=== PATIENT | male | born 1975 | race Caucasian/White ===

== ENCOUNTER 2020-04-25 04:35 | Emergency (ER) | payer OTHER ==
[~2020-04-25] VITALS: Ht 175.3 cm; Wt 72.6 kg
[2020-04-25 04:40] VITALS: BP 130/78
[2020-04-25 05:40] VITALS: BP 130/78
== END 2020-04-25 05:40 | disposition home or self-care (01) ==
LOC: MED 04:35
DX: M79.641 Pain in right hand (principal); M79.642 Pain in left hand; F12.90 Cannabis use, unspecified, uncomplicated; Z59.0 Homelessness; W01.0XXA Fall on same level from slipping, tripping and stumbling without subsequent striking against object, initial encounter; Y93.01 Activity, walking, marching and hiking; Y92.89 Other specified places as the place of occurrence of the external cause; Y99.8 Other external cause status
CPT/HCPCS: 99283

== ENCOUNTER 2022-09-23 14:57 | Inpatient (IN) | payer SELFPAY ==
[~2022-09-23] VITALS: Ht 177.8 cm; Wt 77.1 kg
[2022-09-23 15:08] VITALS: BP 127/73; PULSE 90; RESP 16; TEMP 98.2; O2SAT 97
--- NOTE | 2022-09-23 15:15 | NUR ---
GWEN COLIN - PATIENT BIBA TO ER BED 06
[2022-09-23] MEDS ORDERED: IBUPROFEN 600 MG TAB PO ONE (15:30)
[2022-09-23] MEDS ORDERED: ACETAMINOPHEN 325 MG TAB PO ONE (15:30)
--- NOTE | 2022-09-23 15:34 | NUR ---
PT WAS SEEN BY DR. MERCADO AT BS. PT PLACED ON THE BS MONITOR.
--- NOTE | 2022-09-23 16:27 | NUR ---
37 Y/O M BIBA FOR ALTERED MENTAL STATE. PT COMPLAING OF BILATERAL FEET PAIN DUE TO BLISTERS ON FEET. PT STATES HE FELL ON HIS HEAD BUT IS UNSURE WHAT OCCURED. [facility] STATES PT WAS INCOMPREHENSIBLE ON SCENE; PT STATES HE HAS HEAD PAIN; PT STATES HE HAS NOT EATEN IN 3 DAYS. PT DENIES N/V/D; SKIN IS PINK/WARM/DRY; AAOX4 PTS GAIT IS UNSTEADY; LUNGS CLEAR BL; HR EVEN AND REGULAR; PT DENIES ANY FEVER, CP, SOB, OR COUGH AT THIS TIME; PATIENT STATES PAIN OF 10/10 AT THIS TIME; VSS; PATIENT POSITIONED FOR COMFORT; HOB ELEVATED; CALL LIGHT WITH IN REACH; PT HAS BEEN PLACED IN FRONT OF NURSES STATION TO MONITOR FOR DIZZINESS. BEDRAILS UP X2; BED DOWN. ER MD MADE AWARE OF PT STATUS. PMHX NO MEDICAL HX NKA
[2022-09-23 16:28] LABS: BASOPHILS % (AUTO) 0.1 % (0.0-2.0); EOSINOPHILS # (AUTO) 0.1 K/uL (0-0.4); EOSINOPHILS % (AUTO) 1.3 % (0.0-4.0); HEMATOCRIT 32.7 % (36-52); HEMOGLOBIN 11.3 g/dL (12.0-18.0); LYMPHOCYTES # (AUTO) 1.1 K/uL (2.0-11.5); LYMPHOCYTES % (AUTO) 10.6 % (20.5-51.1); MEAN CORPUSCULAR HEMOGLOBIN 32 pg (27-31); MEAN CORPUSCULAR HGB CONC 34 g/dL (33-37); MEAN CORPUSCULAR VOLUME 93.9 fL (80-94); MONOCYTES # (AUTO) 0.8 K/uL (0.8-1.0); MONOCYTES % (AUTO) 7.1 % (1.7-9.3); NEUTROPHILS # (AUTO) 8.8 K/uL (1.8-7.7); NEUTROPHILS % (AUTO) 80.9 % (42.2-75.2); PLATELET COUNT (AUTO) 365 K/uL (140-450); RED BLOOD CELL COUNT(AUTO) 3.48 MIL/uL (4.20-6.10); RED CELL DISTRIBUTION WIDTH 14.1 % (11.6-13.7); WHITE BLOOD COUNT (AUTO) 10.8 K/uL (4.8-10.8)
[2022-09-23 16:35] VITALS: O2SAT 97
[2022-09-23] MEDS ORDERED: IBUPROFEN 600 MG TAB ONE (16:44)
[2022-09-23] MEDS ORDERED: ACETAMINOPHEN 325 MG TAB ONE (16:45)
--- NOTE | 2022-09-23 16:51 | NUR ---
PT HAS BEEN MEDICATED PER PROVIDERS ORDERS.
[2022-09-23 16:52] LABS: ACETAMINOPHEN < 0.5 ug/ml (10-30); ANION GAP 13.3 (8-16); ASPARTATE AMINOTRANSFERASE 205 U/L (15-37); CARBON DIOXIDE 26.7 mmol/L (21-32); CHLORIDE 101 mmol/L (98-107); CREATININE 0.7 mg/dL (0.6-1.3); GFR ARICAN-AMERICAN 162 mL/min (>90); GLUCOSE 107 mg/dL (74-106); SALICYLATE < 2.8 mg/dL (2.8-20.0); SODIUM SERUM 138 mmol/L (136-145); TOTAL BILIRUBIN 0.7 mg/dL (0.0-1.0); UREA NITROGEN, BLOOD 19 mg/dL (7-18)
--- NOTE | 2022-09-23 18:56 | NUR ---
The patient's care was reviewed and supervised by ONEYDA HIDALGO RN.
[2022-09-23] MEDS ORDERED: POTASSIUM CHLORIDE 10 MEQ TABER PO ONE (19:10)
[2022-09-23 19:23] VITALS: O2SAT 97
--- NOTE | 2022-09-23 19:23 | NUR ---
RECEIVED REPORT FROM CHRISS CONTRERAS. PT LYING IN BED AND STATES PAIN TO BILATERAL LOWER EXTREMITIES 11/10. PT PENDING ADM. CONTINUING PLAN OF CARE.
--- NOTE | 2022-09-23 19:23 | NUR ---
RELEASED CARE TO BEN OLIVARES, AND BEN PIMENTEL.
[2022-09-23] MEDS ORDERED: NACL 0.9% 1,000 ML IV SCH (20:25)
[2022-09-23] MEDS ORDERED: POTASSIUM CHLORIDE 10 MEQ TABER PO PRN (20:25)
[2022-09-23] MEDS ORDERED: HYDROcodone/APAP 7.5/325 MG 1 TAB PO PRN (20:25)
[2022-09-23] MEDS ORDERED: ZOLPIDEM 5 MG TAB PO PRN (20:25)
[2022-09-23] MEDS ORDERED: ONDANSETRON 4 MG/2 ML VIAL IM/IVP PRN (20:25)
[2022-09-23] MEDS ORDERED: DOCUSATE SODIUM 100 MG GELCAP PO PRN (20:25)
[2022-09-23] MEDS ORDERED: ACETAMINOPHEN 325 MG TAB PO PRN (20:25)
[2022-09-23] MEDS ORDERED: guaiFENesin DM 200/20 MG-10 ML 10 ML UDC PO PRN (20:25)
--- NOTE | 2022-09-23 21:00 | NUR ---
XRAY AT BEDSIDE. MED RECONCILE COMPLETED. PT IS PENDING ADMISSION
[2022-09-23] MEDS: LACTULOSE 20 GM/30 ML UDC PO SCH (21:07)
[2022-09-23 21:34] VITALS: O2SAT 99
[2022-09-23 21:59] LABS: PROTHROMBIN TIME 11.3 secs (10.8-13.4)
--- NOTE | 2022-09-23 22:03 | NUR ---
REPORT GIVEN TO HERRERA NOYOLA MST.
[2022-09-23 22:06] LABS: PHOSPHORUS 2.8 mg/dL (2.5-4.9)
[2022-09-23 22:08] LABS: MAGNESIUM 0.8 mg/dL (1.8-2.4)
[2022-09-23 22:20] VITALS: BP 98/48; PULSE 67; PULSE 69; RESP 18; TEMP 97.5; O2SAT 95
--- NOTE | 2022-09-23 22:20 | NUR ---
RECEIVED PT FROM ER VIA [facility]. PT IS AWAKE AND ALERT, NOTED SLEEPY. PT ADMITTED WITH CHIEF COMPLAINT OF ALTERED MENTAL STATUS. PT HAS NO HISTORY AND IS A FULL CODE. HE IS AMBULATORY AND ON ROOM AIR. CURRENTLY PT IS NPO EXCEPT MEDS. PT IS CONTINENT. IV SITE IS ON RIGHT AC 20G. SKIN INTACT. ORIENT PT TO THE ROOM AND SURROUNDING AND HOW TO USE MONITOR FOR TV AND CALL LIGHT.
--- NOTE | 2022-09-23 22:25 | NUR ---
Patient will be admitted to care of DR. VANCE. Admited to [facility]. Will go to room 123-A. Belongings list completed. Report to HERRERA NOYOLA.
--- NOTE | 2022-09-23 22:42 | NUR ---
RECEIVED REPORT FROM ER NURSE, ELISE, PT MAGNESIUM LAB RESULT = 0.8. REPORTED TO DR. PINKY MD ORDER MAGNESIUM RIDER X 1.
[2022-09-23] MEDS ORDERED: MAG SULF 2000 MG/WATER PREMIX 50 ML IV SCH (22:45)
--- NOTE | 2022-09-23 23:49 | NUR ---
PHARMACY VERIFIED. MAG BULLOCK ADMINISTERED ORDER.
[2022-09-24] VITALS: BP 100/53; PULSE 60; PULSE 76; RESP 18; TEMP 97.3; O2SAT 95
[2022-09-24 04:00] VITALS: BP 94/53; PULSE 65; PULSE 67; RESP 18; TEMP 97.8; O2SAT 97
--- NOTE | 2022-09-24 05:00 | NUR ---
ROUNDS PT ASKING FOR FOOD AND SOMETHING TO EAT , REMINDS HIM NPO , THEN PT . SUDDENLY MAD AND SHOUTING , CHARGE NURSE AND HERRERA NOYOLA GO TO ROOM TO CALM DOWN THE PT . ENSURE SAFETY .
--- NOTE | 2022-09-24 05:00 | NUR ---
PT IS YELLING AND SCREAMING ASKING FOR FOOD. EDUCATE AND EXPLAIN TO PT, PT CALM DOWN A BIT.
--- NOTE | 2022-09-24 05:02 | NUR ---
PT TALKING BY DENNYS , SHE PROVIDING THE WARM BLANKET , 2 SECURITY GUARDS STANDBY IN THE FLOOR , WILL CONT. TO MONITOR .
--- NOTE | 2022-09-24 07:25 | NUR ---
PT IS ON BED AND STABLE. SAFETY MEASURES ARE IN PLACE. ENDORSED TO DAY SHIFT NURSE.
--- NOTE | 2022-09-24 07:26 | NUR ---
RECEIVED PT FROM PRESCHOOL TEACHER ASSISTANT NURSE FOR CONTINUITY OF CARE. PT IS AWAKE, AOX3. RESPIRATIONS EVEN AND UNLABORED ON RA. PT YELLING AND CUSSING. YELLING STATES" I AM IN PAIN". ASKED BY NURSE IF HE WOULD LIKE TO RECEIVE PAIN MEDS PT STATES '"YES ACTUALLY NO, I DONT WANT ANY PAIN MEDS OR MAYBE IF YOU HAVE NORCO I WOULD LIKE THAT ONE. BUT I DONT NEED ANY I WILL LET YOU KNOW IF I WANT IT LATER." PT SPEECH STUTTERING, TALKING FAST AND YELLING. IV ON RAC 20G INFUSING NS @ 60. CALL LIGHT WITHIN REACH. ALL SAFETY PRECAUTIONS IN PLACE.
[2022-09-24] MEDS: LACTULOSE 20 GM/30 ML UDC PO SCH (08:23)
--- NOTE | 2022-09-24 08:23 | NUR ---
PT REFUSED ALL SCHEDULED MEDS. PROVIDED PT TEACHING REGARDING REFUSED MEDS. PT STATES "I DONT WANT TO TAKE ALL THAT IT MESSES MY STOMACH. GIVE ME MY PAIN PILL. IM YELLING ON THE INSIDE." PAIN MED NORCO ADMINISTERED.
--- NOTE | 2022-09-24 08:49 | NUR ---
PT REFUSING BLOOD DRAW FOR MORNING LABS. SENT LANDMAN AWAY.
[2022-09-24] MEDS ORDERED: PANTOPRAZOLE 40 MG TABEC PO SCH (09:00)
--- NOTE | 2022-09-24 09:00 | NUR ---
PATIENT HAS BEEN SCREENED AND CATEGORIZED HIGH NUTRITION RISK. PATIENT WILL BE SEEN WITHIN 1-2 DAYS OF ADMISSION. 09/24/22-09/25/22 [facility] REFERRAL RECEIVED FOR PATIENT FOR NOT EATING/DRINKING X3 DAYS ON 09/24/22. DREA DER[address]
--- NOTE | 2022-09-24 09:15 | NUR ---
LOCOMOTIVE CRANE OPERATOR HELPER TALK TO PT, PT REFUSING TO SIGN AMA. INFORMED BY LEGAL INTERN PATIENT IS ELOPING. PT AM[facility]ULATING [facility].
--- NOTE | 2022-09-24 10:55 | NUR ---
Multimedia Production Assistant re: homelessness Attempted to see patient at bedside to discuss his homelessness and provide appropriate resources. Per nursing, the patient left AMA this morning at approximately 9:15a. I did not see the patient nor offer him resources.
== END 2022-09-24 09:42 | disposition left against medical advice (07) | DRG 92 ==
LOC: EDBD 14:57 → MED 14:57 → MERGE 20:25 → MMU 20:25 → MTU 21:19
PROVIDERS: ADMIT Student in an Organized Health Care Education/Training Program; ATTEND Student in an Organized Health Care Education/Training Program
DX: G92.8 Other toxic encephalopathy (principal); E44.0 Moderate protein-calorie malnutrition; E83.42 Hypomagnesemia; D64.9 Anemia, unspecified; E87.6 Hypokalemia; R74.01 Elevation of levels of liver transaminase levels; Z53.29 Procedure and treatment not carried out because of patient's decision for other reasons; Z68.24 Body mass index [BMI] 24.0-24.9, adult
CPT/HCPCS: 36415; 70450; 71045; 76705; 80053; 82140; 83605; 83735; 84100; 84443; 85025; 85610; 85730; 87040; 87081; 99285; G0480; G0482; J3475

== ENCOUNTER 2022-09-26 11:28 | Emergency (ER) | payer MEDICAID ==
[~2022-09-26] VITALS: Ht 177.8 cm; Wt 72.6 kg
[2022-09-26] MEDS ORDERED: LOTC TP (11:45)
[2022-09-26] MEDS ORDERED: CEPH-588 PO (11:45)
--- NOTE | 2022-09-26 11:50 | NUR ---
PT AMB TO CHAIR C
[2022-09-26 11:57] VITALS: BP 130/60; PULSE 86; RESP 16; TEMP 97.6
--- NOTE | 2022-09-26 12:03 | NUR ---
PATIENT BIB [employer]. PATIENT EXAMINED BY DR. MORALES. PATIENT MEDICALLY CLEARED AND RELEASED IN CUSTODY IN STABLE CONDITION. ORIGINAL PRE-BOOK FORM GIVEN TO OFFICER LEÓN.
== END 2022-09-26 12:03 ==
LOC: MED 11:28
DX: B35.3 Tinea pedis (principal); Z79.899 Other long term (current) drug therapy; Z79.2 Long term (current) use of antibiotics
CPT/HCPCS: 99283